=== PATIENT | female | born 1965 | race Caucasian/White ===

== ENCOUNTER 2017-03-06 14:18 | Emergency (ER) | payer OTHER ==
[2017-03-06 14:29] VITALS: BP 141/82; PULSE 85; TEMP 98.1; BMI 32.5
== END 2017-03-06 20:30 | disposition left against medical advice (07) ==
LOC: JER 14:18
DX: Z53.21 Procedure and treatment not carried out due to patient leaving prior to being seen by health care provider (principal)
CPT/HCPCS: 99281-25

== ENCOUNTER 2017-10-14 13:59 | Emergency (ER) | payer OTHER ==
[2017-10-14 14:04] VITALS: BMI 32.8
[2017-10-14] MEDS ORDERED: SODIUM CHLORIDE 1,000 ML IV STA (14:56)
[2017-10-14] MEDS ORDERED: KETOROLAC TROMETHAMINE 15 MG/ML VIAL IVPUSH ONE (14:56)
[2017-10-14] MEDS ORDERED: METOCLOPRAMIDE HCL INJECTION 10 MG/2 ML VIAL IVPUSH ONE (14:56)
[2017-10-14] MEDS ORDERED: METOCLOPRAMIDE HCL INJECTION 10 MG/2 ML VIAL ONE (15:19)
[2017-10-14] MEDS ORDERED: KETOROLAC TROMETHAMINE 15 MG/ML VIAL ONE (15:19)
--- NOTE | 2017-10-14 15:28 | PDOC ---
History of Present Illness - General Chief Complaint: Lightheaded Stated Complaint: DIZZINESS, HEADACHE Time Seen by Provider: 10/14/17 14:36 History Source: Patient Exam Limitations: No Limitations - History of Present Illness Initial Comments: 10/14/17 15:23 Patient is a 52F with no significant medical history here today complaining of a headache that onset insidiously last night. She describe the headache as a throbbing pain that hurts all over her head and radiates to her neck, with the left side more affected than the right. She endorses some minor sound and light sensitivity. Denies fevers, vomiting. Endorses nausea. Denies neck stiffness. Patient is also complaining of dysuria since yesterday, although this has been a chronic problem for her in the past. Denies chest pain, shortness of breath. Past History - Past Medical History Allergies/Adverse Reactions: Allergies Allergy/AdvReac Type Severity Reaction Status Date / Time No Known Allergies Allergy Verified 10/14/17 14:01 Home Medications: Ambulatory Orders Naproxen 250 mg PO BID PRN #20 tablet 10/14/17 COPD: No - Surgical History Abdominal Surgery: Yes Cholecystectomy: Yes - Immunization History Immunization Up to Date: Yes - Suicide/Smoking/Psychosocial Hx Smoking History: Never smoked Hx Alcohol Use: No Drug/Substance Use Hx: No Substance Use Type: None Review of Systems - Review of Systems Comments:: 10/14/17 15:28 GENERAL/CONSTITUTIONAL: No fever or chills. No weakness. HEAD, EYES, EARS, NOSE AND THROAT: No change in vision. No sore throat. CARDIOVASCULAR: No chest pain or shortness of breath RESPIRATORY: No cough, wheezing, or hemoptysis. GASTROINTESTINAL: No nausea, vomiting, diarrhea or constipation. GENITOURINARY: Positive for dysuria, frequency MUSCULOSKELETAL: No joint or muscle swelling or pain. No neck or back pain. SKIN: No rash NEUROLOGIC: Positive for headache. Negative for loss of consciousness, or change in strength/sensation. HEMATOLOGIC/LYMPHATIC: No anemia, easy bleeding, or history of blood clots. ALLERGIC/IMMUNOLOGIC: No hives or skin allergy. *Physical Exam - Vital Signs Last Vital Signs Temp Pulse Resp BP Pulse Ox 98.0 F 82 18 143/84 98 10/14/17 14:01 10/14/17 14:01 10/14/17 14:01 10/14/17 14:01 10/14/17 14:01 - Physical Exam Comments: 10/14/17 15:29 GENERAL: Awake, alert, and fully oriented, in no acute distress HEAD: No signs of trauma, normocephalic, atraumatic EYES: PERRLA, EOMI, sclera anicteric, conjunctiva clear ENT: Auricles normal inspection, hearing grossly normal, nares patent, oropharynx clear without exudates. Moist mucosa NECK: Normal ROM, supple, no lymphadenopathy, JVD, or masses LUNGS: No distress, speaks full sentences, clear to auscultation bilaterally HEART: Regular rate and rhythm, normal S1 and S2, no murmurs, rubs or gallops, peripheral pulses normal and equal bilaterally. ABDOMEN: Soft, nontender, normoactive bowel sounds. No guarding, no rebound. No masses EXTREMITIES: Normal inspection, Normal range of motion, no edema. No clubbing or cyanosis. NEUROLOGICAL: Cranial nerves II through XII grossly intact. Normal speech, no focal sensorimotor deficits SKIN: Warm, Dry, normal turgor, no rashes or lesions noted. ED Treatment Course - LABORATORY CBC & Chemistry Diagram: 10/14/17 14:35 10/14/17 14:35 Medical Decision Making - Medical Decision Making 10/14/17 15:31 Patient is a 52F with no significant medical history here today with headache and dysuria. Normal vital signs and physical exam. No red flags on history for serious pathology, no signs of meningmus. Will do ua/uc for urinary symptoms. Likely discharge. 10/14/17 17:48 EKG shows normal sinus rhythm with rate of 75bpm. No st elevations/depressions. No significant t wave inversions. Normal QRS/LA/QTc intervals. Normal axis. 10/14/17 17:49 Laboratory Tests 10/14/17 10/14/17 14:35 14:35 WBC 8.9 Hgb 13.2 Plt Count 294 BUN 9 Creatinine 0.6 CBC normal. CMP reassuring. UA negative. Patient feels improved. On further questioning patient does have history of headaches in the past but has not seen neurology. Will give outpatient neuro follow up. *DC/Admit/Observation/Transfer Diagnosis at time of Disposition: Headache - Discharge Dispostion Disposition: HOME Condition at time of disposition: Good Decision to Admit order: No - Prescriptions Prescriptions: Naproxen 250 mg PO BID PRN #20 tablet PRN Reason: Headache - Referrals Referrals: Amor Porras MD [Primary Care Provider] - Goran Larsen MD [Staff Physician] - - Patient Instructions Printed Discharge Instructions: DI for Headache Additional Instructions: Follow up with the neurologist within 1-2 weeks for your headache as discussed. You may need an MRI to work up your headaches. Also, follow up with your primary doctor within 2-3 days. As discussed, your liver function tests were slightly elevated and need to be repeated at your primary doctor's office. Return to the emergency department if you have any new, worsening, or concerning symptoms. - Post Discharge Activity
[2017-10-14 15:50] LABS: HEMOGLOBIN 13.2 GM/dL (10.7-15.3); MCH 29.8 pg (25.7-33.7); MCHC 33.1 g/dl (32.0-36.0); MEAN CELL VOLUME 90.2 fl (80-96); MEAN PLT VOLUME 9.1 fl (7.5-11.1); PLATELET COUNT 294 K/MM3 (134-434); RBC 4.44 M/mm3 (3.60-5.2); WHITE BLOOD COUNT 8.9 K/mm3 (4.0-10.0)
[2017-10-14 15:55] LABS: URINE APPEARANCE CLEAR; URINE BILIRUBIN NEGATIVE (<2.0 mg/dL); URINE COLOR COLORLESS; URINE GLUCOSE (UA) NEGATIVE (NEGATIVE); URINE KETONE NEGATIVE (NEGATIVE); URINE LEUK ESTERASE NEGATIVE (NEGATIVE); URINE NITRITE NEGATIVE (NEGATIVE); URINE PROTEIN NEGATIVE (NEGATIVE); URINE UROBILINOGEN NEGATIVE mg/dL (0.2-1.0)
[2017-10-14 16:13] LABS: ALBUMIN 3.6 g/dl (3.4-5.0); ANION GAP 5 (8-16); BILIRUBIN,TOTAL 0.2 mg/dL (0.2-1.0); BLOOD UREA NITROGEN 9 mg/dL (7-18); CALCIUM 8.6 mg/dL (8.5-10.1); CHLORIDE 106 mmol/L (98-107); CO2 30 mmol/L (21-32); CREATININE 0.6 mg/dL (0.55-1.02); GLUCOSE,RANDOM 117 mg/dL (74-106); POTASSIUM 4.2 mmol/L (3.5-5.1); SGOT/AST 58 U/L (15-37); SGPT/ALT 96 U/L (12-78); SODIUM 141 mmol/L (136-145); TOT PROT 6.8 g/dl (6.4-8.2)
[2017-10-14 16:14] LABS: ALK PHOS 139 U/L (45-117)
--- NOTE | 2017-10-14 17:01 | PDOC ---
Attending Attestation - Resident Resident Name: [email or web address] - ED Attending Attestation I have performed the following: I have examined & evaluated the patient, The case was reviewed & discussed with the resident, I agree w/resident's findings & plan, Exceptions are as noted - HPI HPI: 10/14/17 17:50 52-year-old female with hx headaches presents to the ED for gradual onset headache since last night. Headache did not peak in severity within 30 mins. Patient reports pain is global but throbs more on the left than the right. She also reports photophobia and phonophobia. She states that she has had similar headaches like this every 2-3 months for many years, but this headache is more painful than her previous headaches. She tried aspirin for her pain with minimal relief. + nausea. Has never seen a neurologist for her headaches. Denies fevers, chills, chest pain, shortness of breath. Denies vomiting. Denies stiff neck, rashes, focal weakness/numbness. - Physicial Exam PE: 10/14/17 18:01 GENERAL: Awake, alert, and fully oriented, in no acute distress HEAD: No signs of trauma EYES: PERRLA, EOMI, sclera anicteric, conjunctiva clear ENT: Auricles normal inspection, hearing grossly normal, nares patent, oropharynx clear without exudates. Moist mucosa NECK: Normal ROM, supple, no lymphadenopathy, JVD, or masses LUNGS: Breath sounds equal, clear to auscultation bilaterally. No wheezes, and no crackles HEART: Regular rate and rhythm, normal S1 and S2, no murmurs, rubs or gallops ABDOMEN: Soft, nontender, normoactive bowel sounds. No guarding, no rebound. No masses EXTREMITIES: Normal range of motion, no edema. No clubbing or cyanosis. No cords, erythema, or tenderness NEUROLOGICAL: Normal speech, cranial nerves intact, negative pronator drift, 5/ 5 strength in all 4 extremities, normal sensation to light touch in all 4 extremities, normal cerebellar exam, normal gait, normal reflexes and tone SKIN: Warm, Dry, normal turgor, no rashes or lesions noted. - Medical Decision Making 10/14/17 18:01 52-year-old female presents to the emergency department with gradual onset headache since last night. Patient reports similar headaches in the past. Vitals and exam within normal limits. Patient does not have any red flags for subarachnoid hemorrhage/mass occupying lesions, she denies worse headache of life, denies headache worse at onset or peak in severity within 30 minutes, and is neurologically intact. Patient also reports marked relief with Toradol, Tylenol, fluids. Given throbbing sensation on left greater than right, likely undiagnosed migraines however discussed with patient at length that she must follow-up with a neurologist for workup of her headaches. Patient also had mildly elevated LFTs, discussed with patient and advised her to follow-up with her primary doctor within 1 week for repeat of her liver function tests. Will discharge the patient with naproxen. Patient requests discharge home. I discussed the physical exam findings, ancillary test results and final diagnoses with the patient. I answered all of the patient's questions. The patient was satisfied with the care received and felt comfortable with the discharge plan and treatment plan. The patient will call their primary care physician within 24 hours to arrange follow-up and will return to the Emergency Department with any new, persistent or worsening symptoms. Heart Score/ECG Review #1 10/14/17 18:05 Twelve-lead EKG was performed and reviewed by me. Normal sinus rhythm, rate 75. Normal axis and intervals. No ST elevations or T-wave inversions.
[2017-10-14] MEDS ORDERED: ACETAMINOPHEN 1000 MG/100 ML VIAL (NON FORMULARY) IVPB ONE (17:06)
[2017-10-14] MEDS ORDERED: ACETAMINOPHEN INJECTION 100 ML IVPB ONE (18:12)
[2017-10-14 19:17] VITALS: BP 109/55; PULSE 62; TEMP 97.6
--- NOTE | 2017-10-15 13:36 | EKG ---
Test Reason : Blood Pressure : / mmHG Vent. Rate : 075 BPM Atrial Rate : 075 BPM P-R Int : 172 ms QRS Dur : 080 ms QT Int : 418 ms P-R-T Axes : 055 018 037 degrees QTc Int : 466 ms NORMAL SINUS RHYTHM NORMAL ECG WHEN COMPARED WITH ECG OF 20-AUG-2007 00:30, NO SIGNIFICANT CHANGE WAS FOUND Confirmed by MD Calabrese Edward ([id number]) on 10/15/2017 1:36:05 PM Referred By: Confirmed By:Rob Calabrese MD
== END 2017-10-14 18:50 | disposition home or self-care (01) ==
LOC: JER 13:59
PROC: 3E033NZ Introduction of Analgesics, Hypnotics, Sedatives into Peripheral Vein, Percutaneous Approach (ICD-10-PCS; principal; 2017-10-14)
PROC: 3E033GC Introduction of Other Therapeutic Substance into Peripheral Vein, Percutaneous Approach (ICD-10-PCS; 2017-10-14)
PROC: 3E0333Z Introduction of Anti-inflammatory into Peripheral Vein, Percutaneous Approach (ICD-10-PCS; 2017-10-14)
DX: R51 Headache (principal); H53.149 Visual discomfort, unspecified
CPT/HCPCS: 36415; 80053; 81003; 85027; 87086; 93005; 93010; 96374; 96375; 99284-25; J0131; J7030

== ENCOUNTER 2023-08-04 06:45 | Emergency (ER) | payer OTHER ==
[2023-08-04 06:54] VITALS: BMI 30.2
[2023-08-04] MEDS ORDERED: ACETAMINOPHEN INJECTION 100 ML IVPB ONE (08:11)
[2023-08-04] MEDS ORDERED: ONDANSETRON 4 MG/2 ML VIAL ONE (08:11)
[2023-08-04] MEDS: ACETAMINOPHEN 1000 MG/100 ML BAG IVPB ONE (08:30)
[2023-08-04] MEDS: LACTATED RINGERS SOLUTION 1000 ML INFUS.BAG IV ONE (08:30)
[2023-08-04] MEDS: ONDANSETRON 4 MG/2 ML VIAL IVPUSH ONE (08:30)
[2023-08-04 08:42] LABS: HEMATOCRIT 41.8 % (32.4-45.2); MCH 29.5 pg (25.7-33.7); MCHC 33.6 g/dl (32.0-36.0); MEAN CELL VOLUME 87.7 fl (80-96); MEAN PLT VOLUME 8.5 fl (7.5-11.1); PLATELET COUNT 337 10^3/uL (134-434); RBC 4.76 M/mm3 (3.60-5.2); RDW 13.5 % (11.6-15.6); WHITE BLOOD COUNT 12.8 K/mm3 (4.0-10.0)
[2023-08-04 09:00] LABS: CALCIUM 9.4 mg/dL (8.5-10.1)
[2023-08-04 09:01] LABS: ALBUMIN 4.2 g/dl (3.4-5.0); BLOOD UREA NITROGEN 13.4 mg/dL (7-18); MAGNESIUM 2.3 mg/dL (1.8-2.4)
[2023-08-04 09:04] LABS: CREATININE 0.7 mg/dL (0.55-1.3)
[2023-08-04 09:06] LABS: BILIRUBIN,TOTAL 0.4 mg/dL (0.2-1)
[2023-08-04] MEDS ORDERED: FAMOTIDINE 20 MG/50 ML IVPB 20 MG/50 ML MG IVPB ONE (09:27)
[2023-08-04 09:33] LABS: ANISOCYTOSIS 0; HELMET CELLS 0; HOWELL-JOLLY BODIES 0; MACROCYTOSIS 0; OVALOCYTE 0; ROULEAU 0; SICKELED CELLS 0; TARGET CELLS 0; TEAR DROP CELLS 0; TOXIC GRANULATION 0
[2023-08-04] MEDS: FAMOTIDINE 20 MG/50 ML IVPB 20 MG/50 ML MG IVPB ONE (09:36)
[2023-08-04 09:44] LABS: EPI CELLS 3 /uL (0-25.1); HYALINE CASTS 0 /uL (0-3.1); PH,URINE 6.5 (5.0-8.0); URINE APPEARANCE CLEAR; URINE BACTERIA 1 /uL (0-1359); URINE BILIRUBIN NEGATIVE (NEGATIVE); URINE COLOR YELLOW; URINE GLUCOSE (UA) NEGATIVE (NEGATIVE); URINE KETONE NEGATIVE (NEGATIVE); URINE LEUK ESTERASE NEGATIVE (NEGATIVE); URINE NITRITE NEGATIVE (NEGATIVE); URINE PROTEIN NEGATIVE (NEGATIVE); URINE RBC 59 /uL (0-23.9); URINE UROBILINOGEN 0.2 mg/dL (0.2-1.0); URINE WBC 6 /uL (0-25.8)
[2023-08-04 10:29] VITALS: BP 132/70; PULSE 75; RESP 18; TEMP 98.2
== END 2023-08-04 10:30 | disposition home or self-care (01) ==
LOC: JER 06:45
PROC: 3E033GC Introduction of Other Therapeutic Substance into Peripheral Vein, Percutaneous Approach (ICD-10-PCS; principal; 2023-08-04)
PROC: 3E033NZ Introduction of Analgesics, Hypnotics, Sedatives into Peripheral Vein, Percutaneous Approach (ICD-10-PCS; 2023-08-04)
PROC: 3E033GC Introduction of Other Therapeutic Substance into Peripheral Vein, Percutaneous Approach (ICD-10-PCS; 2023-08-04)
DX: R11.2 Nausea with vomiting, unspecified (principal); R10.84 Generalized abdominal pain; R19.7 Diarrhea, unspecified; K52.9 Noninfective gastroenteritis and colitis, unspecified; Z20.822 Contact with and (suspected) exposure to COVID-19
CPT/HCPCS: 0241U-QW; 36415; 71045-TC-FY; 80053; 81003; 83690; 83735; 85025; 86850; 86900; 86901; 87086; 93005; 93010; 99285-25; J0131